=== PATIENT | male | born 1940 | race Caucasian/White ===

== ENCOUNTER 2017-04-29 21:18 | Inpatient (IN) | payer MEDICARE, OTHER ==
[~2017-04-29] VITALS: Ht 185.4 cm; Wt 125.7 kg
[~2017-04-29 21:18] MED LIST: NO HOME MEDICATIONS
[2017-04-29 22:02] LABS: BASO # 0.1 (0.0-0.2); BASO % 0.4 % (0.0-2.0); EOS # 0.3 (0.0-0.7); EOS % 1.8 % (0-4.0); GRAN # 9.4 (1.4-6.5); GRAN % 67.3 % (42.2-75.2); HEMATOCRIT 42.9 % (42.0-52.0); HEMOGLOBIN 14.4 g/dl (13.5-18.0); LYMPH # 2.1 (1.2-3.4); LYMPH % 15.3 % (20.0-51.0); MEAN CELL VOLUME 95 fl (80.0-100.0); MEAN CORPUSCULAR HEMOGLOBIN 32 pg (27.0-31.0); MEAN CORPUSCULAR HGB CONC 34 g/dl (33.0-37.0); MONO % 14.5 % (1.7-9.3); PLATELET COUNT 137 K/mm3 (130-400); RED BLOOD COUNT 4.51 M/mm3 (4.20-5.60); REDCELL DISTRIBUTION WIDTH-CV 13.9 % (11.5-14.5); WHITE BLOOD COUNT 13.9 K/mm3 (4.8-10.8)
[2017-04-29 22:07] LABS: PROTHROMBIN TIME 11.6 SECONDS (9.7-12.8)
[2017-04-29 22:09] LABS: PARTIAL THROMBOPLASTIN TIME 28.2 SECONDS (26.0-37.0)
[2017-04-29 22:13] LABS: ADJUSTED CALCIUM 9.2 mg/dL (8.4-10.2); ALANINE AMINOTRANSFERASE 29 U/L (21-72); ALBUMIN 3.8 gm/dL (3.5-5.0); ALKALINE PHOSPHATASE 62 U/L (50-136); ANION GAP 10 mmol/L (7-16); BILIRUBIN,TOTAL 1.1 mg/dL (0.0-1.0); BLOOD UREA NITROGEN 13 mg/dL (9-20); CARBON DIOXIDE 26 mmol/L (22-30); CHLORIDE 100 mmol/L (98-107); CREATINE KINASE 56 U/L (55-170); GLUCOSE 155 mg/dL (74-106); LIPASE 57 U/L (23-300); POTASSIUM 4.1 mmol/L (3.4-5.0); SODIUM 135 mmol/L (137-145); TOTAL PROTEIN 7.1 gm/dL (6.4-8.2)
[2017-04-29 22:24] LABS: B-TYPE NATRIURETIC PEPTIDE 266 pg/mL (0-450)
[2017-04-29 22:26] LABS: TROPONIN-I < 0.012 ng/mL (0.000-0.034)
[2017-04-30] VITALS (11 sets, daily range): BP systolic 107–149; BP diastolic 54–92; PULSE 64–84; TEMP 98.1–99.3
[2017-04-30 01:22] LABS: B-TYPE NATRIURETIC PEPTIDE 261 pg/mL (0-450)
[2017-04-30 01:28] LABS: TROPONIN-I < 0.012 ng/mL (0.000-0.034)
[2017-04-30] MEDS ORDERED: NAPROSYN500 MG PO (02:28)
[2017-04-30 05:45] LABS: PH 5 (5-8); SQUAMOUS EPITHELIAL None Seen /hpf; URINE APPEARANCE Clear; URINE BACTERIA Rare /hpf; URINE BILIRUBIN Negative (NEGATIVE); URINE BLOOD Negative (NEGATIVE); URINE COLOR Yellow; URINE GLUCOSE Negative (NEGATIVE); URINE KETONE Negative (NEGATIVE); URINE RBC 0-2 /hpf; URINE UROBILINOGEN Negative (NEGATIVE); URINE WBC 0-2 /hpf
[2017-04-30 06:56] LABS: HEMATOCRIT 43.5 % (42.0-52.0); HEMOGLOBIN 14.2 g/dl (13.5-18.0); MEAN CELL VOLUME 97 fl (80.0-100.0); MEAN CORPUSCULAR HEMOGLOBIN 32 pg (27.0-31.0); MEAN CORPUSCULAR HGB CONC 33 g/dl (33.0-37.0); MEAN PLATELET VOLUME 9.2 fl (7.4-10.4); PLATELET COUNT 138 K/mm3 (130-400); RED BLOOD COUNT 4.51 M/mm3 (4.20-5.60); REDCELL DISTRIBUTION WIDTH-CV 13.9 % (11.5-14.5); WHITE BLOOD COUNT 11.7 K/mm3 (4.8-10.8)
[2017-04-30 07:08] LABS: ADD PATHOLOGY DIFF REVIEW NO
[2017-04-30 07:09] LABS: CALCIUM 8.5 mg/dL (8.4-10.2); CREATININE, serum 1.14 mg/dL (0.66-1.25); POTASSIUM 3.7 mmol/L (3.4-5.0)
[2017-04-30 09:27] LABS: BAND 25 % (0-10); EOSINOPHIL 1 % (0-4); METAMYELOCYTE 3 % (0-0); MYELOCYTE 4 % (0-0); NEUTROPHILS 50 % (42.0-75.2); PLATELET ESTIMATE NORMAL (NORMAL); TOTAL CELLS COUNTED 100
[2017-04-30 09:28] LABS: HYPOCHROMIA 1+
[2017-05-01 03:23] VITALS: BP 159/67; PULSE 72; TEMP 98.3
[2017-05-01 08:21] VITALS: BP 112/82; PULSE 72; TEMP 97.9
[2017-05-01 11:36] VITALS: BP 152/90; PULSE 75; TEMP 98.3
[2017-05-01] MEDS ORDERED: XARELTO15 MG PO (12:32)
[2017-05-02 09:48] LABS: PROTEIN C ACTIVITY 79 % (70-150)
[2017-05-02 09:52] LABS: PROTEIN S ACTIVITY 141 % (65-149)
[2017-05-02 11:55] LABS: FACTOR V LEIDEN MUTATION B Negative (Negative); PT G20210A MUTATION B Negative (Negative)
[2017-05-02 13:25] LABS: LUPUS ANTICOAGULANT INR 1.1 (()); LUPUS ANTICOAGULANT PT 12.5 sec (()); LUPUS ANTICOAGULANT PTT 34 sec (26 - 36)
[2017-05-02 13:55] LABS: LUPUS ANTICOAGULANT DRVVT 1.1 ratio (())
[2017-05-03 13:11] LABS: .ANTICARDIOLIPIN IGG <9.4 GPL (()); .ANTICARDIOLIPIN IGM 32.1 MPL (())
== END 2017-05-01 14:18 | disposition home or self-care (01) | DRG 176 ==
LOC: COL.ER 21:18 → MEDICAL 04-30 00:10
PROVIDERS: Emergency Medicine; Family Medicine; Nurse Practitioner Family
DX: I26.92 Saddle embolus of pulmonary artery without acute cor pulmonale (principal); I82.432 Acute embolism and thrombosis of left popliteal vein; I82.412 Acute embolism and thrombosis of left femoral vein; J90 Pleural effusion, not elsewhere classified; I26.99 Other pulmonary embolism without acute cor pulmonale; F17.220 Nicotine dependence, chewing tobacco, uncomplicated
CPT/HCPCS: 99223-AI; 99232-AI; 99239; J1560; J2270; J2405; J7120; Q9967

== ENCOUNTER 2017-09-09 06:42 | Inpatient (IN) | payer MEDICARE, OTHER ==
[~2017-09-09] VITALS: Ht 182.9 cm; Wt 114.5 kg
[~2017-09-09 06:42] MED LIST changes: +NAPROSYN500 MG PO; +XARELTO15 MG PO
[2017-09-09] MEDS ORDERED: XARELTO20 MG PO (06:53)
[2017-09-09 07:17] LABS: HEMATOCRIT 45.7 % (42.0-52.0); HEMOGLOBIN 15.6 g/dl (13.5-18.0); MEAN CELL VOLUME 94 fl (80.0-100.0); MEAN CORPUSCULAR HEMOGLOBIN 32 pg (27.0-31.0); MEAN CORPUSCULAR HGB CONC 34 g/dl (33.0-37.0); MEAN PLATELET VOLUME 9.3 fl (7.4-10.4); PLATELET COUNT 126 K/mm3 (130-400); RED BLOOD COUNT 4.89 M/mm3 (4.20-5.60); WHITE BLOOD COUNT 17.1 K/mm3 (4.8-10.8)
[2017-09-09 07:18] LABS: ADD PATHOLOGY DIFF REVIEW NO
[2017-09-09 07:24] LABS: INR 1.6 (0.8-3.0); PROTHROMBIN TIME 18.3 SECONDS (9.7-12.8)
[2017-09-09 07:27] LABS: PARTIAL THROMBOPLASTIN TIME 35.6 SECONDS (26.0-37.0)
[2017-09-09 07:30] LABS: ADJUSTED CALCIUM 9.2 mg/dL (8.4-10.2); BILIRUBIN,TOTAL 0.7 mg/dL (0.0-1.0); CALCIUM 9.2 mg/dL (8.4-10.2); CREATININE, serum 1.4 mg/dL (0.66-1.25); POTASSIUM 3.9 mmol/L (3.4-5.0); TOTAL PROTEIN 7.3 gm/dL (6.4-8.2)
[2017-09-09 07:39] LABS: TROPONIN-I 0.023 ng/mL (0.000-0.034)
[2017-09-09 07:42] LABS: C-REACTIVE PROTEIN 14.5 mg/dL (0.0-0.9)
[2017-09-09 08:58] LABS: COLLECTION METHOD CLEAN CATCH
[2017-09-09 09:07] LABS: MUCOUS Present /lpf; PH 6 (5-8); SQUAMOUS EPITHELIAL None Seen /hpf; URINE APPEARANCE Clear; URINE BACTERIA None Seen /hpf; URINE BILIRUBIN Negative (NEGATIVE); URINE BLOOD 1+ (NEGATIVE); URINE COLOR Yellow; URINE GLUCOSE 2+ (NEGATIVE); URINE KETONE Negative (NEGATIVE); URINE LEUKOCYTE ESTERASE Negative (NEGATIVE); URINE PROTEIN(semi-quant) 2+ (NEGATIVE); URINE RBC 0-2 /hpf; URINE WBC 0-2 /hpf
[2017-09-09 09:08] LABS: BAND 52 % (0-10); LYMPHOCYTE 8 % (20.0-51.0); MYELOCYTE 1 % (0-0); NEUTROPHILS 39 % (42.0-75.2); PLATELET ESTIMATE NORMAL (NORMAL); TOTAL CELLS COUNTED 100
[2017-09-09 10:35] VITALS: BP 111/49; PULSE 75; TEMP 98.3
[2017-09-09 12:12] VITALS: BP 121/52; PULSE 84; TEMP 99.2
[2017-09-09 15:58] VITALS: BP 131/94; PULSE 82; TEMP 98.6
[2017-09-09 19:52] VITALS: BP 111/33; PULSE 80; TEMP 99.1
[2017-09-10 00:06] VITALS: BP 138/67; PULSE 73; TEMP 98.6
[2017-09-10 03:52] VITALS: BP 120/70; PULSE 84; TEMP 99.4
[2017-09-10 07:30] VITALS: BP 116/66; PULSE 72; TEMP 100.3
[2017-09-10 09:40] LABS: HEMATOCRIT 38.8 % (42.0-52.0); HEMOGLOBIN 12.5 g/dl (13.5-18.0); MEAN CELL VOLUME 98 fl (80.0-100.0); MEAN CORPUSCULAR HEMOGLOBIN 31 pg (27.0-31.0); MEAN CORPUSCULAR HGB CONC 32 g/dl (33.0-37.0); MEAN PLATELET VOLUME 9.1 fl (7.4-10.4); PLATELET COUNT 108 K/mm3 (130-400); RED BLOOD COUNT 3.97 M/mm3 (4.20-5.60)
[2017-09-10 09:41] LABS: ADD PATHOLOGY DIFF REVIEW NO
[2017-09-10 10:12] LABS: BAND 59 % (0-10); LYMPHOCYTE 12 % (20.0-51.0); NEUTROPHILS 29 % (42.0-75.2); PLATELET ESTIMATE DECREASED (NORMAL); TOTAL CELLS COUNTED 100
[2017-09-10 11:40] VITALS: BP 114/70; PULSE 67; TEMP 97.5
[2017-09-10 12:45] LABS: THYROID STIMULATING HORMONE 1.16 uIU/mL (0.465-4.680)
[2017-09-10 15:31] VITALS: BP 122/71; PULSE 69; TEMP 98.9
[2017-09-10 20:22] VITALS: BP 149/60; PULSE 78; TEMP 98.6
[2017-09-11 00:11] VITALS: BP 177/86; PULSE 73; TEMP 99
[2017-09-11 04:53] VITALS: BP 172/87; PULSE 100; TEMP 98.1
[2017-09-11 06:32] LABS: BASO % 0.4 % (0.0-2.0); EOS # 0.3 (0.0-0.7); EOS % 3.1 % (0-4.0); GRAN % 72.5 % (42.2-75.2); HEMATOCRIT 37.7 % (42.0-52.0); HEMOGLOBIN 12.4 g/dl (13.5-18.0); LYMPH # 1.2 (1.2-3.4); MEAN CELL VOLUME 96 fl (80.0-100.0); MEAN CORPUSCULAR HEMOGLOBIN 32 pg (27.0-31.0); MEAN CORPUSCULAR HGB CONC 33 g/dl (33.0-37.0); MEAN PLATELET VOLUME 9.9 fl (7.4-10.4); MONO # 1.1 (0.1-0.6); MONO % 11.4 % (1.7-9.3); PLATELET COUNT 116 K/mm3 (130-400); RED BLOOD COUNT 3.93 M/mm3 (4.20-5.60); WHITE BLOOD COUNT 9.6 K/mm3 (4.8-10.8)
[2017-09-11 06:39] LABS: INR 1.7 (0.8-3.0); PROTHROMBIN TIME 18.9 SECONDS (9.7-12.8)
[2017-09-11 07:50] VITALS: BP 166/94; PULSE 67; TEMP 98
[2017-09-11 10:10] LABS: CALCIUM 8.5 mg/dL (8.4-10.2); CREATININE, serum 1.19 mg/dL (0.66-1.25); POTASSIUM 3.9 mmol/L (3.4-5.0)
[2017-09-11] MEDS ORDERED: DOXYCYCLINE 10100 MG PO (10:59)
[2017-09-11] MEDS ORDERED: GLUCOPHAGE500 MG/TAB PO (11:01)
[2017-09-11] MEDS ORDERED: AMARYL 2MG T2 MG/TAB PO (11:02)
[2017-09-11] MEDS ORDERED: COZAAR 25MG25 MG/TAB PO (11:11)
[2017-09-11 12:29] VITALS: BP 149/76; PULSE 69; TEMP 98.3
== END 2017-09-11 16:06 | disposition home or self-care (01) | DRG 872 ==
LOC: COL.ER 06:42 → MEDICAL 09:28
PROVIDERS: Emergency Medicine; Internal Medicine; Nurse Practitioner Family
DX: A41.9 Sepsis, unspecified organism (principal); L03.116 Cellulitis of left lower limb; N17.9 Acute kidney failure, unspecified; I82.532 Chronic embolism and thrombosis of left popliteal vein; E11.9 Type 2 diabetes mellitus without complications; Z79.01 Long term (current) use of anticoagulants; Z86.711 Personal history of pulmonary embolism; E66.9 Obesity, unspecified; Z68.34 Body mass index [BMI] 34.0-34.9, adult
CPT/HCPCS: 99223-AI; 99233-AI; 99239; J2270; J2405; J2543; J3370; J7030; J7050; Q9967

== ENCOUNTER → 2017-09-26 | Outpatient (CLI) | payer MEDICARE, OTHER ==
[~2017-09-26] MED LIST changes: +AMARYL 2MG T2 MG/TAB PO; +COZAAR 25MG25 MG/TAB PO; +DOXYCYCLINE 10100 MG PO; +GLUCOPHAGE500 MG/TAB PO; +XARELTO20 MG PO
== END ==
LOC: SUN.DIA 11:10
DX: E11.9 Type 2 diabetes mellitus without complications (principal); I10 Essential (primary) hypertension; E66.9 Obesity, unspecified; Z68.34 Body mass index [BMI] 34.0-34.9, adult; Z71.3 Dietary counseling and surveillance; F17.220 Nicotine dependence, chewing tobacco, uncomplicated
CPT/HCPCS: G0108

== ENCOUNTER 2021-02-01 10:51 | Emergency (ER) | payer MEDICARE, OTHER ==
[~2021-02-01] VITALS: Ht 185.4 cm; Wt 109.1 kg
[2021-02-01 11:01] VITALS: TEMP 97.7
[2021-02-01 11:46] LABS: BASO % 0.6 % (0.0-2.0); EOS # 0.2 (0.0-0.7); EOS % 2.7 % (0-4.0); GRAN # 4.4 (1.4-6.5); GRAN % 69.5 % (42.2-75.2); HEMATOCRIT 48.9 % (42.0-52.0); HEMOGLOBIN 15.9 g/dl (13.5-18.0); LYMPH # 1.1 (1.2-3.4); LYMPH % 17.1 % (20.0-51.0); MEAN CELL VOLUME 98 fl (80.0-100.0); MEAN CORPUSCULAR HEMOGLOBIN 32 pg (27.0-31.0); MEAN CORPUSCULAR HGB CONC 33 g/dl (33.0-37.0); MEAN PLATELET VOLUME 8.8 fl (7.4-10.4); MONO # 0.6 (0.1-0.6); MONO % 9.6 % (1.7-9.3); PLATELET COUNT 159 K/mm3 (130-400); RED BLOOD COUNT 4.99 M/mm3 (4.20-5.60); REDCELL DISTRIBUTION WIDTH-CV 13.3 % (11.5-14.5)
[2021-02-01 11:57] LABS: ALBUMIN 3.8 gm/dL (3.5-5.0); BILIRUBIN,TOTAL 0.4 mg/dL (0.0-1.0); CALCIUM 9.4 mg/dL (8.4-10.2); CREATININE, serum 1.29 (0.66-1.25); POTASSIUM 4.5 mmol/L (3.4-5.0)
[2021-02-01 12:37] LABS: COLLECTION METHOD CLEAN CATCH
[2021-02-01 12:50] LABS: MUCOUS Present /lpf; PH 6 (5-8); SQUAMOUS EPITHELIAL None Seen /hpf; URINE APPEARANCE Clear; URINE BACTERIA None Seen /hpf; URINE BILIRUBIN Negative (NEGATIVE); URINE BLOOD Negative (NEGATIVE); URINE COLOR Yellow; URINE GLUCOSE Negative (NEGATIVE); URINE KETONE Negative (NEGATIVE); URINE LEUKOCYTE ESTERASE Negative (NEGATIVE); URINE NITRATE Negative (NEGATIVE); URINE PROTEIN(semi-quant) 1+ (NEGATIVE); URINE RBC 0-2 /hpf; URINE UROBILINOGEN Negative (NEGATIVE)
[2021-02-01] MEDS ORDERED: LIDODERM 5% PATC1 EA TP (14:00)
[2021-02-01] MEDS ORDERED: NORFLEX 10100 MG/TAB PO (14:00)
[2021-02-01 14:13] VITALS: BP 172/86; PULSE 65
== END 2021-02-01 14:15 | disposition home or self-care (01) ==
LOC: COL.ER 10:51
PROVIDERS: Physician Assistant
DX: M54.17 Radiculopathy, lumbosacral region (principal); I10 Essential (primary) hypertension; E11.9 Type 2 diabetes mellitus without complications; Z86.718 Personal history of other venous thrombosis and embolism; Z79.84 Long term (current) use of oral hypoglycemic drugs; Z79.01 Long term (current) use of anticoagulants
CPT/HCPCS: J1100; J2360

== ENCOUNTER 2021-04-22 17:40 | Emergency (ER) | payer MEDICARE, OTHER ==
[~2021-04-22] VITALS: Ht 182.9 cm; Wt 90.9 kg
[~2021-04-22 17:40] MED LIST changes: +LIDODERM 5% PATC1 EA TP; +NORFLEX 10100 MG/TAB PO
[2021-04-22 18:21] LABS: BASO # 0.1 (0.0-0.2); BASO % 0.7 % (0.0-2.0); EOS # 0.3 (0.0-0.7); EOS % 3.2 % (0-4.0); GRAN # 5.8 (1.4-6.5); GRAN % 61.5 % (42.2-75.2); HEMATOCRIT 42.1 % (42.0-52.0); HEMOGLOBIN 14.2 g/dl (13.5-18.0); LYMPH # 2.1 (1.2-3.4); LYMPH % 22.6 % (20.0-51.0); MEAN CELL VOLUME 94 fl (80.0-100.0); MEAN CORPUSCULAR HEMOGLOBIN 32 pg (27.0-31.0); MEAN CORPUSCULAR HGB CONC 34 g/dl (33.0-37.0); MEAN PLATELET VOLUME 8.7 fl (7.4-10.4); MONO % 10.9 % (1.7-9.3); PLATELET COUNT 195 K/mm3 (130-400); RED BLOOD COUNT 4.49 M/mm3 (4.20-5.60); REDCELL DISTRIBUTION WIDTH-CV 14.7 % (11.5-14.5)
[2021-04-22 18:24] LABS: INR 0.9 (0.8-3.0); PROTHROMBIN TIME 10.4 SECONDS (9.7-12.8)
[2021-04-22 18:25] LABS: ALANINE AMINOTRANSFERASE 19 U/L (4-49); ALBUMIN 3.7 gm/dL (3.5-5.0); ALKALINE PHOSPHATASE 59 U/L (50-136); ANION GAP 9 mmol/L (7-16); AST,SGOT 23 U/L (15-37); BILIRUBIN,TOTAL 0.5 mg/dL (0.0-1.0); BLOOD UREA NITROGEN 10 mg/dL (9-20); CALCIUM 8.7 mg/dL (8.4-10.2); CARBON DIOXIDE 20 mmol/L (22-30); CHLORIDE 102 mmol/L (98-107); CREATININE, serum 1.09 (0.66-1.25); GLUCOSE 121 mg/dL (74-106); POTASSIUM 4.2 mmol/L (3.4-5.0); SODIUM 130 mmol/L (137-145); TOTAL PROTEIN 6.9 gm/dL (6.4-8.2)
[2021-04-22 18:26] LABS: PARTIAL THROMBOPLASTIN TIME 34.1 SECONDS (26.0-37.0)
[2021-04-22 18:37] LABS: TROPONIN-I < 0.012 ng/mL (0.000-0.035)
[2021-04-22 19:10] VITALS: BP 138/70; PULSE 80
== END 2021-04-22 19:20 | disposition home or self-care (01) ==
LOC: COL.ER 17:40
PROVIDERS: Family Medicine
DX: S00.93XA Contusion of unspecified part of head, initial encounter (principal); S80.02XA Contusion of left knee, initial encounter; I10 Essential (primary) hypertension; I48.91 Unspecified atrial fibrillation; E11.9 Type 2 diabetes mellitus without complications; R55 Syncope and collapse; Z86.718 Personal history of other venous thrombosis and embolism; Z86.711 Personal history of pulmonary embolism; Z79.01 Long term (current) use of anticoagulants; Z79.84 Long term (current) use of oral hypoglycemic drugs; Z79.899 Other long term (current) drug therapy; W01.10XA Fall on same level from slipping, tripping and stumbling with subsequent striking against unspecified object, initial encounter

== ENCOUNTER 2022-05-12 11:48 | Emergency (ER) | payer MEDICARE, OTHER ==
[~2022-05-12] VITALS: Ht 185.4 cm; Wt 84.1 kg
[~2022-05-12 11:48] MED LIST changes: +FLEXERIL 1010 MG/TAB PO; +PREDNISONE20 MG PO
[2022-05-12 12:10] VITALS: TEMP 97.8
[2022-05-12 13:02] LABS: BASO % 0.3 % (0.0-2.0); EOS # 0.2 K/mm3 (0.0-0.7); EOS % 2.5 % (0.0-4.0); GRAN # 3.8 K/mm3 (1.4-6.5); GRAN % 62.4 % (42.2-75.2); HEMATOCRIT 48.1 % (42.0-52.0); HEMOGLOBIN 15.7 g/dl (13.5-18.0); LYMPH # 1.3 K/mm3 (1.2-3.4); LYMPH % 21.3 % (20.0-51.0); MEAN CELL VOLUME 100 fl (80.0-100.0); MEAN CORPUSCULAR HEMOGLOBIN 33 pg (27-31); MEAN CORPUSCULAR HGB CONC 33 g/dl (33.0-37.0); MEAN PLATELET VOLUME 9.2 fl (7.4-10.4); MONO # 0.8 K/mm3 (0.1-0.6); MONO % 12.5 % (1.7-9.3); PLATELET COUNT 155 K/mm3 (130-400); RED BLOOD COUNT 4.81 M/mm3 (4.20-5.60); REDCELL DISTRIBUTION WIDTH-CV 13.2 % (11.5-14.5)
[2022-05-12 13:16] LABS: ALBUMIN 3.6 gm/dL (3.4-4.8); ANION GAP 12 mmol/L (7-16); BLOOD UREA NITROGEN 15 mg/dL (8-26); CALCIUM 9.3 mg/dL (8.4-10.2); CARBON DIOXIDE 21 mmol/L (23-31); CHLORIDE 106 mmol/L (98-107); CREATININE, serum 1.15 mg/dL (0.72-1.25); GLUCOSE 111 mg/dL (70-99); PHOSPHOROUS 2.3 mg/dL (2.3-4.7); POTASSIUM 4.6 mmol/L (3.5-4.5); SODIUM 139 mmol/L (136-145)
[2022-05-12 13:23] LABS: TROPONIN-I < 0.010 ng/mL (0.00-0.033)
[2022-05-12] MEDS ORDERED: NORVASC 5MG5 MG/TAB PO (15:37)
[2022-05-12 16:45] VITALS: BP 120/72; PULSE 88
== END 2022-05-12 16:46 | disposition home or self-care (01) ==
LOC: COL.ER 11:48
PROVIDERS: Emergency Medicine
DX: U07.1 COVID-19 (principal); I10 Essential (primary) hypertension

== ENCOUNTER 2024-04-25 18:55 | Emergency (ER) | payer MEDICARE, OTHER ==
[~2024-04-25] VITALS: Ht 185.4 cm; Wt 88.6 kg
[~2024-04-25 18:55] MED LIST changes: +NORVASC 5MG5 MG/TAB PO
[2024-04-25 19:08] VITALS: TEMP 98
[2024-04-25 19:55] LABS: BASO # 0.1 K/mm3 (0.0-0.2); BASO % 0.6 % (0.0-2.0); EOS # 0.5 K/mm3 (0.0-0.7); EOS % 5.6 % (0.0-4.0); GRAN # 4.6 K/mm3 (1.4-6.5); GRAN % 57.3 % (42.2-75.2); HEMATOCRIT 44.4 % (42.0-52.0); HEMOGLOBIN 14.9 g/dl (13.5-18.0); LYMPH # 2.1 K/mm3 (1.2-3.4); LYMPH % 25.8 % (20.0-51.0); MEAN CELL VOLUME 97 fl (80.0-100.0); MEAN CORPUSCULAR HEMOGLOBIN 32 pg (27-31); MEAN CORPUSCULAR HGB CONC 34 g/dl (33.0-37.0); MEAN PLATELET VOLUME 9.5 fl (7.4-10.4); MONO # 0.8 K/mm3 (0.1-0.6); MONO % 10.2 % (1.7-9.3); PLATELET COUNT 208 K/mm3 (130-400); REDCELL DISTRIBUTION WIDTH-CV 13.7 % (11.5-14.5)
[2024-04-25 20:09] LABS: ALANINE AMINOTRANSFERASE 22 U/L (0-55); ALBUMIN 3.8 g/dL (3.4-4.8); ALKALINE PHOSPHATASE 45 U/L (40-150); ANION GAP 12 mmol/L (7-16); AST,SGOT 16 U/L (5-34); BILIRUBIN,TOTAL 0.3 mg/dL (0.2-1.2); BLOOD UREA NITROGEN 15 mg/dL (8-26); CALCIUM 9.6 mg/dL (8.4-10.2); CHLORIDE 106 mEq/L (98-107); CREATININE, serum 1.19 mg/dL (0.72-1.25); GLUCOSE 123 mg/dL (70-99); POTASSIUM 4.4 mEq/L (3.5-4.5); SODIUM 139 mEq/L (136-145)
[2024-04-25 20:16] LABS: TROPONIN-I < 0.010 ng/mL (0.00-0.033)
[2024-04-25 20:34] LABS: COLLECTION METHOD CLEAN CATCH
[2024-04-25 20:37] LABS: PH 5.5 (5.0-8.5); URINE APPEARANCE CLEAR (CLEAR/HAZY); URINE BLOOD NEGATIVE (NEGATIVE); URINE COLOR YELLOW (YELLOW); URINE GLUCOSE NEGATIVE (NEGATIVE); URINE KETONE NEGATIVE (NEGATIVE); URINE NITRATE NEGATIVE (NEGATIVE); URINE PROTEIN(semi-quant) NEGATIVE (NEGATIVE); URINE UROBILINOGEN 0.2 E.U/dL (0.2-1.0)
[2024-04-25 21:15] VITALS: BP 128/77; PULSE 73
== END 2024-04-25 21:15 | disposition home or self-care (01) ==
LOC: COL.ER 18:55
PROVIDERS: Nurse Practitioner Primary Care
DX: S70.01XA Contusion of right hip, initial encounter (principal); S10.93XA Contusion of unspecified part of neck, initial encounter; S00.93XA Contusion of unspecified part of head, initial encounter; Z79.01 Long term (current) use of anticoagulants; W19.XXXA Unspecified fall, initial encounter; W22.8XXA Striking against or struck by other objects, initial encounter